=== PATIENT | female | born 1955 | race Caucasian/White ===

== ENCOUNTER → 2025-06-24 | Outpatient (CLI) | payer MEDICARE, OTHER, SELFPAY ==
--- NOTE | 2025-06-24 08:22 | CT_ITS ---
PROCEDURE: EXTREMITY LOWER WITHOUT CONTRA 06/24/2025 REASON FOR EXAM: KNEE PAIN TECHNIQUE: Procedure Code: CTELWO Modality: CT Procedure: EXTREMITY LOWER WITHOUT CONTRA Coronal and Sagittal reconstruction series were provided. One or more dose reduction techniques were used (e.g., Automated exposure control, adjustment of the mA and/or kV according to patient size, use of iterative reconstruction technique). RADIATION DOSE SUMMARY: CTDlvol: 24.1 mGy DLP: 1093 mGycm COMPARISON: None FINDINGS: No fracture or traumatic malalignment. Accessory ossicles adjacent to the navicular. Moderate joint space narrowing in the left hip, and [id number] in the left knee. Left knee chondrocalcinosis. Punctate 4 mm calcifications at the intercondylar notch and left suprapatellar joint space. Visualized pelvic contents are unremarkable. CT/Extremity Lower without Contra IMPRESSION: 1. Moderate to severe osteoarthritis of the left knee. Chondrocalcinosis is p resent and suggestive of calcium pyrophosphate deposition disease. There are a few tiny loose joint bodies. 2. Moderate osteoarthritis of the left hip. Reading Location: [id number]
== END | disposition home or self-care (01) ==
LOC: CT 08:17
PROVIDERS: PCP Family Medicine; Visit Provider Specialist
DX: M25.562 Pain in left knee (principal); M21.162 Varus deformity, not elsewhere classified, left knee
CPT/HCPCS: 73700

== ENCOUNTER 2025-07-14 05:22 | Day surgery (SDC) | payer MEDICARE, OTHER, SELFPAY ==
[2025-06-24 10:11] LABS: Hematocrit 35.8 % (37-47); Hemoglobin 12.0 g/dL (12.0-15.0); Immature Granulocytes Count 0.010 X10^3/uL (0.0-0.0); Mean Corp Hgb Conc 33.5 g/dL (32-36); Mean Corpuscular Volume 103.8 fL (81-99); Mean Platelet Vol. 9.5 fl (6.2-12.0); NRBC Flagged by Analyzer 0 % (0-5); Platelet Count 305 K/mm3 (150-450); RBC Distribution Width CV 12.9 % (11.6-14.6); RBC Distribution Width SD 49.8 fl (35.1-43.9); Red Blood Count 3.45 M/mm3 (4.2-5.4); White Blood Count 5.2 K/mm3 (4.4-11.0)
[2025-06-24 10:32] LABS: Magnesium 2.0 mg/dL (1.5-2.2)
[2025-06-24 10:34] LABS: Albumin, Serum 4.8 g/dL (3.4-4.8); Anion Gap 12 (5-15); BUN 15 mg/dL (4-19); BUN/Creat Ratio 18.7 RATIO (10-20); Calcium,Total 9.3 mg/dL (7.6-11.0); Carbon Dioxide 22.8 mmol/L (21.0-32.0); Chloride 103 mmol/L (98-108); Glucose 101 mg/dL (70-99); Potassium 4.2 mmol/L (3.3-5.1)
[2025-07-14] VITALS (10 sets, daily range): BP systolic 127–158; BP diastolic 53–67; PULSE 69–102; RESP 13–18; TEMP 36.3–37.1; O2SAT 94–100; BMI 25.0
[2025-07-14] MEDS: LR 1,000 ML - BOLUS PREOP 999 ML IV (06:22)
[2025-07-14] MEDS: Magnesium 1 GM over 15 mins IV (06:23)
[2025-07-14] MEDS: Midazolam 2 MG/2 ML Syringe IV (07:37)
[2025-07-14] MEDS: Cefazolin 1 GM/5 ML Vial 2 GM IV (07:38)
[2025-07-14] MEDS: Lidocaine 1% (5 ml sdv) 5 ML Vial 6 ML IV (07:46)
[2025-07-14] MEDS: TRANEXAMIC ACID 1,000 MG/10 ML ML 2000 MG IV (08:30)
[2025-07-14] MEDS: JPS (Morphine 10mg/ml) OPERA.SITE (08:44)
[2025-07-14] MEDS: LR 1,000 ML - BOLUS POSTOP 999 ML IV (09:46)
[2025-07-14] MEDS: Cefazolin 1 GM/50 ML BAG IV (11:26)
== END 2025-07-14 13:35 | disposition home or self-care (01) ==
LOC: SDC 05:22 → AC 05:23
PROVIDERS: Anesthesiology; PCP Family Medicine; Referring Provider Specialist; Visit Provider Specialist
PROC: 0SRD0JZ Replacement of Left Knee Joint with Synthetic Substitute, Open Approach (ICD-10-PCS; CPT 27447; principal; 2025-07-14 07:00)
DX: M17.12 Unilateral primary osteoarthritis, left knee (principal); Z79.4 Long term (current) use of insulin; Z79.899 Other long term (current) drug therapy; F41.9 Anxiety disorder, unspecified; F32.A Depression, unspecified
CPT/HCPCS: 27447; S2900; 01402; 36415; 73560; 80048; 82040; 82962; 83735; 85025; 87081; 93005; 97161; C1776; J2405; J3475